=== PATIENT | male | born 1955 | race American Indian/Alaskan Native ===

== ENCOUNTER 2020-08-30 11:41 | Outpatient (CLI) | payer OTHER ==
--- NOTE | 2020-08-30 13:45 | XRay Report ---
BILATERAL WRISTS 6 VIEWS INDICATION / CLINICAL INFORMATION: Bilateral wrist pain. COMPARISON: None available. FINDINGS: BONES and JOINT(S): No acute fracture or subluxation. No significant arthritis. SOFT TISSUES: No significant abnormality. ADDITIONAL FINDINGS: None. IMPRESSION: 1. No acute findings. Signer Name: Panda Paul MD Signed: 08/30/2020 1:40 PM Workstation Name: [id number]
--- NOTE | 2020-08-30 13:47 | XRay Report ---
LEFT ANKLE 3 VIEWS INDICATION / CLINICAL INFORMATION: Pain in left ankle. COMPARISON: None available. FINDINGS: BONES and JOINT(S): No acute fracture or subluxation. No significant arthritis. SOFT TISSUES: No significant abnormality. ADDITIONAL FINDINGS: None. IMPRESSION: 1. No acute findings. Signer Name: Panda Paul MD Signed: 08/30/2020 1:43 PM Workstation Name: [id number]
--- NOTE | 2020-08-30 13:48 | XRay Report ---
LUMBAR SPINE 3 VIEWS INDICATION: Low back pain/injury. COMPARISON: No relevant prior imaging study available. FINDINGS: VERTEBRAE: No acute fracture. Normal alignment. DISC SPACES: Mild discogenic degenerative changes are noted at L2-L3 and L3-L4. FACET JOINTS: No significant abnormality. SOFT TISSUES: No significant abnormality. ADDITIONAL FINDINGS: No additional significant findings. IMPRESSION: 1. No acute findings. 2. Mild lumbar spondylosis. Signer Name: Panda Paul MD Signed: 08/30/2020 1:44 PM Workstation Name: [id number]
== END 2020-08-30 11:42 | disposition home or self-care (01) ==
LOC: XRAY 11:41
PROVIDERS: ATTEND Internal Medicine
DX: S39.92XA Unspecified injury of lower back, initial encounter (principal); M17.0 Bilateral primary osteoarthritis of knee; M54.5 Low back pain; M47.816 Spondylosis without myelopathy or radiculopathy, lumbar region; M25.532 Pain in left wrist; M25.531 Pain in right wrist; M25.572 Pain in left ankle and joints of left foot; X58.XXXA Exposure to other specified factors, initial encounter; Y93.89 Activity, other specified; Y92.89 Other specified places as the place of occurrence of the external cause; Y99.8 Other external cause status
CPT/HCPCS: 72100